=== PATIENT | male | born 1975 | race Caucasian/White ===

== ENCOUNTER → 2018-12-15 | Outpatient (CLI) | payer OTHER ==
[~2018-12-15] MED LIST: OMEP40CA36 PO
--- NOTE | 2018-12-15 11:13 | Diagnostic Imaging Report ---
Thoracic spine at 7:52 a.m. INDICATION: Back pain TECHNIQUE: AP, lateral and swimmer's views are obtained. COMPARISON: There are no prior studies available for comparison. FINDINGS: The vertebral body heights and alignment are within normal limits. The intervertebral spaces are well-maintained. There is no fracture or acute bony abnormality evident. There is no sign of a paraspinal mass. IMPRESSION: There is no evidence for an acute bony abnormality. Dictated by: Dictated on workstation # [id number]
--- NOTE | 2018-12-15 12:03 | Diagnostic Imaging Report ---
EXAMINATION: Lumbar spine at 0753 hours. INDICATION: Back pain. TECHNIQUE: AP, lateral, and spot lateral views were obtained. COMPARISON: There are no prior studies available for comparison. FINDINGS: The AP view reveals that there are six lumbar type vertebra. This is a developmental variant. The vertebral body heights and alignment are within normal limits and the intervertebral spaces are well maintained. There is no fracture or acute bony abnormality noted. The spot lateral view does show slight offset of the lower sacrum. This may be a sequela of prior trauma. There is no sign of a paraspinal mass. The sacroiliac joints are symmetrical and within normal limits. IMPRESSION: 1. There is no evidence for an acute bone abnormality. 2. If there is clinical concern regarding spinal stenosis or nerve root encroachment, then MRI would be recommended for further evaluation. Dictated by: Dictated on workstation # [id number]
--- NOTE | 2018-12-16 12:17 | HISTORY AND PHYSICAL ---
DATE OF SERVICE: COLONOSCOPY H AND P HISTORY OF PRESENT ILLNESS: The patient is a 43-year-old white male referred by Dr. Hebert for his first screening colonoscopy. He is deemed to be of higher than average risk as his father was diagnosed with colon cancer at the age of 49. He has had no previous colonoscopic screening. He is not aware of any history of bright red blood per rectum or melena. He denies any problems with diarrhea or constipation. He reports his weight has been stable and there have been no bowel habit changes or abdominal pain. He is not aware of any other family history for colon cancer. PAST MEDICAL HISTORY: Significant for reportedly mild reflux symptoms, he takes omeprazole for. He has had no dysphagia. There is no known family history for Capps's esophagus or any other GI tract malignancies other than his father's colon cancer. He reports that symptoms are well controlled on omeprazole. PAST SURGICAL HISTORY: As a child, he had a tonsillectomy and adenoidectomy. He reports no other surgeries. SOCIAL HISTORY: He works in [employer] for an 8 to 10-year. He reports that he smoked a pack of cigarettes per week, but quit about 10 years ago. Reports occasional social alcohol intake. FAMILY HISTORY: As noted in the HPI. REVIEW OF SYSTEMS: CONSTITUTIONAL: He denies change in weight, night sweats, chills or fever. CARDIOVASCULAR: He denies chest pain, palpitations, syncope or presyncope. PULMONARY: He denies any problems of wheezing, dyspnea on exertion or at rest. GASTROINTESTINAL: As noted in the HPI. PHYSICAL EXAMINATION: GENERAL: Reveals normal weight white male who appears to be in no acute distress. VITAL SIGNS: Weight is 175 pounds, blood pressure 120/78. HEENT: Unremarkable. He is a Mallampati class 2 oropharyngeal configuration. Oral cavity reveals no evidence for erythema or exudate. CHEST: Clear to auscultation. CARDIOVASCULAR: Reveals a regular rate and rhythm without murmur, S3 or S4. ABDOMEN: Soft, supple without mass, organomegaly or tenderness. EXTREMITIES: Reveal no cyanosis, clubbing or edema. ASSESSMENT AND PLAN: The patient is set up for screening colonoscopy at higher than average risk considering his father was diagnosed with colon cancer at the age of 49. Prep instructions with the Pérez-Prep kit were given and questions were answered. He was scheduled for colonoscopy on 12/25/2018. Discussed the need to avoid aspirin and nonsteroidal therapy in the interim. I thank you for the referral of this pleasant gentleman. Job ID: [id number] DocumentID: [id number] Dictated Date: 12/16/2018 11:29:20 Air Boatswain Date: 12/16/2018 12:16:37 Dictated By: EDIN DU MD
== END ==
LOC: RAD 07:28
PROVIDERS: ATTEND Internal Medicine
DX: M54.5 Low back pain (principal); M54.6 Pain in thoracic spine
CPT/HCPCS: 72072; 72100

== ENCOUNTER 2018-12-17 05:40 | Outpatient (CLI) | payer OTHER ==
[~2018-12-17] VITALS: Ht 185.5 cm; Wt 79.5 kg
[2018-12-17] MEDS ORDERED: OMEP40CA36 PO (15:01)
== END 2018-12-17 15:02 | disposition home or self-care (01) ==
LOC: PREOP 05:40
PROVIDERS: ATTEND Internal Medicine
DX: Z01.818 Encounter for other preprocedural examination (principal)

== ENCOUNTER 2018-12-25 08:31 | Day surgery (SDC) | payer OTHER ==
[2018-12-25] VITALS (11 sets, daily range): BP systolic 110–144; BP diastolic 60–83
[~2018-12-25] VITALS: Ht 185.5 cm; Wt 79.5 kg
[2018-12-25] MEDS ORDERED: fentaNYL INJECTION 100 MCG/2 ML AMP IVP ONE (08:45)
[2018-12-25] MEDS ORDERED: D5 LR IV SOLUTION 1,000 ML IV PRN (08:45)
[2018-12-25] MEDS ORDERED: LIDOCAINE JELLY 2% 6 ML SYRINGE MM PRN (08:45)
[2018-12-25] MEDS ORDERED: MIDAZOLAM 5 MG/5 ML (VERSED) VIAL IV PRN (08:45)
[2018-12-25] MEDS ORDERED: LIDOCAINE JELLY 2% 6 ML SYRINGE ONE (09:42)
[2018-12-25] MEDS ORDERED: fentaNYL INJECTION 100 MCG/2 ML AMP ONE (09:42)
[2018-12-25] MEDS ORDERED: MIDAZOLAM 5 MG/5 ML (VERSED) VIAL ONE (09:42)
--- NOTE | 2018-12-25 10:32 | Pre-Op Note & Conscious Sedat ---
Pre-Operative Progress Note H&P Reviewed The H&P was reviewed, patient examined and no changes noted. Date H&P Reviewed: Dec 25, 2018 Time H&P Reviewed: 09:30 Conscious Sedation Pre-Proced ASA Score 1 For ASA 3 and 4: Consider anesthesia and medical clearance. Also, for patients with a history of failed moderate sedation consider anesthesia. Airway Lungs Heart ASA score ASA 1: a normal healthy patient ASA 2: a patient with a mild systemic disease (mid diabetes, controlled hypertension, obesity ASA 3: a patient with a severe systemic disease that limits activity (angina, COPD, prior Myocardial infarction) ASA 4: a patient with an incapacitating disease that is a constant threat to life (CHF, renal failure) ASA 5: a moribund patient not expected to survive 24 hrs. (ruptured aneurysm) ASA 6: a declared brain- patient whose organs are being harvested. For emergent operations, add the letter E after the classification Mallampati Classification Grade 2 Sedation Plan Analgesia, Amnesia, Plan communicated to team members, Discussed options with patient/fam, Discussed risks with patient/fam The patient is an appropriate candidate to undergo the planned procedure, sedation, and anesthesia. The patient immediately re-assessed prior to indication. EDIN DU MD Dec 25, 2018 10:32
--- NOTE | 2018-12-26 01:08 | OPERATIVE REPORT ---
DATE OF SERVICE: INDICATION FOR THE PROCEDURE: Screening colonoscopy. He is deemed to be of higher than average risk as his father was diagnosed with colon cancer in his late 40s. This was his first colonoscopy. DESCRIPTION OF PROCEDURE: The patient was placed in the left lateral decubitus position. Prior to undergoing colonoscopy, digital rectal evaluation was performed. Anal sphincter tone was normal and the perianal reflexes intact. Prostate is mildly enlarged, anodular and nontender to digital inspection. No other abnormalities were noted to digital inspection of the anal canal or distal rectal vault. The colonoscope was then inserted into the rectum and under direct visualization advanced to the cecum. The cecum was identified by identification of the ileocecal valve and cecal strap. Photographic documentation was obtained. Careful inspection was made as colonoscope was withdrawn. Quality of prep was good and the patient tolerated the procedure well. FINDINGS: There was no evidence for internal or external hemorrhoids. Present at the rectosigmoid junction was a diminutive 3 mm sessile polyp. It was photographed and biopsied and ablated with no subsequent blood loss. Several small sigmoid diverticulum were present without evidence for diverticulitis. No other sigmoid colonic abnormalities were appreciated. The descending colon, splenic flexure, transverse colon, and ascending colon were unremarkable. Another diminutive 2 mm polyp was noted in the cecum. It was photographed, then biopsied and ablated again with no blood loss. ASSESSMENT: 1. Two small polyps were removed today, one from the rectosigmoid junction and the other one from the cecum via hot forceps. As long as there is no surprise on histopathology report considering family history, we will advocate repeat colonoscopy in 3 years. 2. Digital rectal evaluation is compatible with mild benign prostate hypertrophy. 3. Mild diverticular disease confined to the sigmoid colon was present without evidence for diverticulitis. Job ID: [id number] DocumentID: [id number] Dictated Date: 12/25/2018 16:54:21 Spiral Runner Date: 12/26/2018 01:07:55 Dictated By: EDIN DU MD
--- NOTE | 2018-12-29 13:53 | HISTORY AND PHYSICAL ---
DATE OF SERVICE: 12/25/18 COLONOSCOPY H AND P HISTORY OF PRESENT ILLNESS: The patient is a 43-year-old white male referred by Dr. Hebert for his first screening colonoscopy. He is deemed to be of higher than average risk as his father was diagnosed with colon cancer at the age of 49. He has had no previous colonoscopic screening. He is not aware of any history of bright red blood per rectum or melena. He denies any problems with diarrhea or constipation. He reports his weight has been stable and there have been no bowel habit changes or abdominal pain. He is not aware of any other family history for colon cancer. PAST MEDICAL HISTORY: Significant for reportedly mild reflux symptoms, he takes omeprazole for. He has had no dysphagia. There is no known family history for Capps's esophagus or any other GI tract malignancies other than his father's colon cancer. He reports that symptoms are well controlled on omeprazole. PAST SURGICAL HISTORY: As a child, he had a tonsillectomy and adenoidectomy. He reports no other surgeries. SOCIAL HISTORY: He works in [email or web address] for an 8 to 10-year. He reports that he smoked a pack of cigarettes per week, but quit about 10 years ago. Reports occasional social alcohol intake. FAMILY HISTORY: As noted in the HPI. REVIEW OF SYSTEMS: CONSTITUTIONAL: He denies change in weight, night sweats, chills or fever. CARDIOVASCULAR: He denies chest pain, palpitations, syncope or presyncope. PULMONARY: He denies any problems of wheezing, dyspnea on exertion or at rest. GASTROINTESTINAL: As noted in the HPI. PHYSICAL EXAMINATION: GENERAL: Reveals normal weight white male who appears to be in no acute distress. VITAL SIGNS: Weight is 175 pounds, blood pressure 120/78. HEENT: Unremarkable. He is a Mallampati class 2 oropharyngeal configuration. Oral cavity reveals no evidence for erythema or exudate. CHEST: Clear to auscultation. CARDIOVASCULAR: Reveals a regular rate and rhythm without murmur, S3 or S4. ABDOMEN: Soft, supple without mass, organomegaly or tenderness. EXTREMITIES: Reveal no cyanosis, clubbing or edema. ASSESSMENT AND PLAN: The patient is set up for screening colonoscopy at higher than average risk considering his father was diagnosed with colon cancer at the age of 49. Prep instructions with the Pérez-Prep kit were given and questions were answered. He was scheduled for colonoscopy on 12/25/2018. Discussed the need to avoid aspirin and nonsteroidal therapy in the interim. I thank you for the referral of this pleasant gentleman. Job ID: [id number] DocumentID: [id number] Dictated Date: 12/16/2018 11:29:20 Freelance Programmer/App Developer Date: 12/16/2018 12:16:37 Dictated By: EDIN DU MD <Dictated by EDIN DU MD> <Electronically signed by EDIN DU MD> 12/18/18 1003 MTDD
== END 2018-12-25 11:20 | disposition home or self-care (01) ==
LOC: ENDO 08:31
PROVIDERS: ATTEND Internal Medicine
DX: Z12.11 Encounter for screening for malignant neoplasm of colon (principal); D12.0 Benign neoplasm of cecum; K62.1 Rectal polyp; K57.30 Diverticulosis of large intestine without perforation or abscess without bleeding; Z87.891 Personal history of nicotine dependence

== ENCOUNTER → 2018-12-29 | Outpatient (CLI) | payer OTHER ==
--- NOTE | 2018-12-29 09:21 | Diagnostic Imaging Report ---
PROCEDURE: US Thyroid. TECHNIQUE: Multiple real-time grayscale images were obtained of the thyroid in various projections. INDICATION: Abnormal TSH COMPARISON: None FINDINGS: The right thyroid lobe is mildly prominent measuring 6.3 cm in length, 3.1 cm AP and 2.4 cm transverse. The echotexture is heterogeneous. Vascularity appears to be within normal limits. No discrete nodule is identified. The isthmus is thick measuring 12 mm. No nodule is seen. The left thyroid lobe measures 6.0 x 2.8 x 1.8 cm and is also heterogeneous with no discrete nodule seen. Vascularity appears normal and symmetric with the right side. IMPRESSION: 1. Enlarged, heterogeneous thyroid, with normal vascularity and no discrete nodule seen. This is nonspecific, but could be seen with a Yani thyroiditis. Dictated by: Dictated on workstation # [id number]
== END ==
LOC: RAD 07:24
PROVIDERS: ATTEND Internal Medicine
DX: E04.9 Nontoxic goiter, unspecified (principal)
CPT/HCPCS: 76536

== ENCOUNTER 2020-07-28 16:17 | Emergency (ER) | payer OTHER ==
[~2020-07-28] VITALS: Ht 182 cm; Wt 160.0 kg
[~2020-07-28 16:17] MED LIST changes: +OMEP40CA27 PO; -OMEP40CA36 PO
[2020-07-28] MEDS ORDERED: KETOROLAC 30 MG/ML VIAL IVP STA (17:04)
--- NOTE | 2020-07-28 17:05 | ED Chest Pain ---
General Chief Complaint: Chest Pain Stated Complaint: STERNUM PAIN Nursing Triage Note: Patient ambulatory to ER with c/o pain to the xiphoid process/sternal area. Patient states this pain started this morning but went away. It came back this evening and is worse. Site is tender to palpation. Patient states he had nausea and vomited multiple times this last week but that is better now. Nursing Sepsis Screen: No Definite Risk Source: patient Exam Limitations: no limitations (TASHA ROBLERO MD) History of Present Illness Date Seen by Provider: July 28, 2020 Time Seen by Provider: 16:57 Initial Comments Here with report of low chest pain anteriorly that has occurred twice today. The first time was earlier this morning and lasted for about 20 minutes and then resolved. Second 1 lasted about 20 to [address] here and still is there a little bit. States that it is tender to touch and denies breathing problems, vomiting, sweating or weakness associated with that. He did have episode of fairly significant vomiting on Friday of this week 5 days ago. That resolved. He is more normal with respect back to his abdominal discomfort from earlier this week although states that he has had less bowel movements than normal. He still is having bowel movements though. Drinks approximately a 12 pack of beer weekly but sometimes it will go up to a case of beer. Timing/Duration: 1/2 hour, intermittent Severity/Quality: moderate, burning Location: central (Sternum lower end and xiphoid) Radiation: no radiation Activities at Onset: none Prior CP/Workup: no prior chest pain, no prior cardiac workup Modifying Factors: improves with rest ASA po BRAKE REPAIRER BUS: No NTG SL BRAKE REPAIRER BUS: No Associated Symptoms: abdominal pain; No back pain, No diaphoresis, No nausea/vomiting, No shortness of breath, No weakness (TASHA ROBLERO MD) Allergies and Home Medications Allergies Coded Allergies: No Known Drug Allergies (Unverified , 04/02/15) Home Medications Omeprazole 40 Mg Capsule.dr, 40 MG PO DAILY, (Reported) Patient Home Medication List Home Medication List Reviewed: Yes (TASHA ROBLERO MD) Review of Systems Review of Systems Constitutional: see HPI; No chills, No fever EENTM: No Symptoms Reported Respiratory: No Symptoms Reported Cardiovascular: Chest Pain; Denies Edema Gastrointestinal: See HPI Genitourinary: No Symptoms Reported Musculoskeletal: No back pain; muscle pain Skin: no symptoms reported (TASHA ROBLERO MD) All Other Systems Reviewed Negative Unless Noted: Yes (TASHA ROBLERO MD) Past Knohvot-Qdiqqf-Pylxra Hx Past Med/Social Hx: Reviewed Nursing Past Med/Soc Hx (TASHA ROBLERO MD) Patient Social History Alcohol Use: Occasionally Uses Alcohol Beverage of Choice: Beer Smoking Status: Former Smoker 2nd Hand Smoke Exposure: No Recent Infectious Disease Expo: No Recent Hopitalizations: No (TASHA ROBLERO MD) Seasonal Allergies Seasonal Allergies: No (TASHA ROBLERO MD) Past Medical History Surgeries: No Adenoidectomy, Tonsillectomy Respiratory: No Cardiac: No Neurological: No Reproductive Disorders: No Genitourinary: No Gastrointestinal: Yes Gastroesophageal Reflux Musculoskeletal: No Endocrine: No HEENT: No Cancer: No Psychosocial: No Integumentary: No Blood Disorders: No (TASHA ROBLERO MD) Family Medical History Reviewed Nursing Family Hx (TASHA ROBLERO MD) Colon cancer Heart Disease (TASHA ROBLERO MD) Physical Exam Vital Signs Vital Signs - First Documented 07/28/20 16:38 Temp 36.7 Pulse 92 Resp 18 B/P (MAP) 129/75 (93) Pulse Ox 96 O2 Delivery Room Air (CHIQUIS SHEETS) Vital Signs Capillary Refill : Less Than 3 Seconds (TASHA ROBLERO MD) Height, Weight, BMI Height: '" Weight: lbs. oz. kg; 48.00 BMI Method: General Appearance: No Apparent Distress, WD/WN HEENT: PERRL/EOMI, Pharynx Normal Neck: Non Tender, Supple Respiratory: Lungs Clear, Normal Breath Sounds Cardiovascular: Regular Rate, Rhythm, No Murmur Gastrointestinal: Soft, Tenderness (Reproducible tenderness to the area of the xiphoid and upper abdomen near this area of the sternum.) Extremity: Normal Range of Motion, Non Tender Neurologic/Psychiatric: Alert, Oriented x3 Skin: Normal Color, Warm/Dry (TASHA ROBLERO MD) Progress/Results/Core Measures Results/Orders Lab Results Laboratory Tests Test 07/28/20 17:13 07/28/20 18:46 Range/Units White Blood Count 5.2 4.3-11.0 10^3/uL Red Blood Count 4.53 4.30-5.52 10^6/uL Hemoglobin 12.7 L 13.3-17.7 g/dL Hematocrit 38 L 40-54 % Mean Corpuscular Volume 83 80-99 fL Mean Corpuscular Hemoglobin 28 25-34 pg Mean Corpuscular Hemoglobin Concent 34 32-36 g/dL Red Cell Distribution Width 12.1 10.0-14.5 % Platelet Count 233 130-400 10^3/uL Mean Platelet Volume 9.5 9.0-12.2 fL Immature Granulocyte % (Auto) 0 % Neutrophils (%) (Auto) 46 42-75 % Lymphocytes (%) (Auto) 41 12-44 % Monocytes (%) (Auto) 11 0-12 % Eosinophils (%) (Auto) 2 0-10 % Basophils (%) (Auto) 0 0-10 % Neutrophils # (Auto) 2.4 1.8-7.8 10^3/uL Lymphocytes # (Auto) 2.1 1.0-4.0 10^3/uL Monocytes # (Auto) 0.6 0.0-1.0 10^3/uL Eosinophils # (Auto) 0.1 0.0-0.3 10^3/uL Basophils # (Auto) 0.0 0.0-0.1 10^3/uL Immature Granulocyte # (Auto) 0.0 0.0-0.1 10^3/uL Prothrombin Time 13.2 12.2-14.7 SEC INR Comment 1.0 0.8-1.4 Activated Partial Thromboplast Time 29 24-35 SEC Sodium Level 140 135-145 MMOL/L Potassium Level 3.7 3.6-5.0 MMOL/L Chloride Level 103 98-107 MMOL/L Carbon Dioxide Level 26 21-32 MMOL/L Anion Gap 11 5-14 MMOL/L Blood Urea Nitrogen 14 7-18 MG/DL Creatinine 0.58 L 0.60-1.30 MG/DL Estimat Glomerular Filtration Rate > 60 BUN/Creatinine Ratio 24 Glucose Level 97 70-105 MG/DL Calcium Level 9.3 8.5-10.1 MG/DL Corrected Calcium 9.5 8.5-10.1 MG/DL Magnesium Level 1.8 1.6-2.4 MG/DL Total Bilirubin 0.7 0.1-1.0 MG/DL Aspartate Amino Transf (AST/SGOT) 32 5-34 U/L Alanine Aminotransferase (ALT/SGPT) 51 0-55 U/L Alkaline Phosphatase 154 H 40-136 U/L Myoglobin 30.3 10.0-92.0 NG/ML Troponin I < 0.028 < 0.028 <0.028 NG/ML Total Protein 6.5 6.4-8.2 GM/DL Albumin 3.8 3.2-4.5 GM/DL Lipase 32 8-78 U/L (CHIQUIS SHEETS) My Orders Orders - CHIQUIS SHEETS Troponin I (07/28/20 18:45) (CHIQUIS SHEETS) Medications Given in ED Current Medications Medications Dose Ordered Sig/Kalani Route Start Time Stop Time Status Last Admin Dose Admin Aspirin 324 mg ONCE ONCE PO 07/28/20 17:15 07/28/20 17:16 DC 07/28/20 17:10 324 MG (CHIQUIS SHEETS) Vital Signs/I&O 07/28/20 16:38 Temp 36.7 Pulse 92 Resp 18 B/P (MAP) 129/75 (93) Pulse Ox 96 O2 Delivery Room Air (CHIQUIS SHEETS) Blood Pressure Mean: 93 Progress Progress Note : Progress Note Seen and evaluated. Given presentation, we will go ahead and initiate chest pain protocol and aspirin 324 mg p.o. given as well. Toradol 30 mg for muscular type pain given IV. Monitor patient. (TASHA ROBLERO MD) Progress Note #1: Time: 18:07 Progress Note #2: Time: 18:07 Progress Note Assumed care of the patient at shift change and I agree with the above documented history physical exam. Because the patient's continued episodes of chest pain which appear to be musculoskeletal or related to his vomiting episodes we will do a delta troponin at 1845. (CHIQUIS SHEETS) Initial ECG Impression Date: July 28, 2020 Initial ECG Impression Time: 17:07 Initial ECG Rate: 88 Comment Sinus rhythm with left atrial abnormality. Normal axis. No evidence of ST elevation [place]. No previous available for comparison. Interpreted by me. (TASHA ROBLERO MD) Initial ECG Rhythm: Normal Sinus Initial ECG Intervals: QT (470) Initial ECG Impression: Normal Comment Normal sinus rhythm without clinically relevant ST elevation or depression. (CHIQUIS SHEETS) Diagnostic Imaging Diagonstic Imaging: Xray Plain Films/CT/US/NM/MRI: chest Comments [facility]. [place], [place] NAME: KARLI ROGERS [facility] REC#: [id number] PT STATUS: REG ER : 1975 PHYSICIAN: TASHA ROBLERO MD ADMIT DATE: 07/28/20/ER Signed Date of Exam:07/28/20 CHEST 1 VIEW, AP/PA ONLY CHEST 1 VIEW, AP/PA ONLY Indication: Chest pain. Comparison: None available. Findings: No focal airspace disease in the visualized lungs. Please note that the posterior lower lobes are poorly evaluated by portable radiography. No pleural effusion or pneumothorax. Normal cardiomediastinal silhouette. Impression: 1. No acute cardiopulmonary process by portable radiography. Dictated by: Dictated on workstation # [id number] Dict: 07/28/201746 Trans: 07/28/201746 [facility] [id number] Interpreted by: ORTIZ TERRAZAS MD Electronically signed by: ORTIZ TERRAZAS MD 07/28/201746 Reviewed: Reviewed by Me (CHIQUIS SHEETS) Departure Impression Primary Impression: Chest pain Additional Impression: Gastroesophageal reflux disease Disposition: 01 HOME, SELF-CARE Condition: Stable Departure-Patient Inst. Decision time for Depature: 19:48 (CHIQUIS SHEETS) Referrals: MARIA ELENA MERCADO MD, BASHAR J MD TAYLOR, JOHN D MD (PCP/Family) Primary Care Physician Patient Instructions: Chest Pain, Adult ED Add. Discharge Instructions: I would like to invite you to call Dr. May's clinic on Friday and request follow-up to complete a work-up of your chest pain and make sure it is not related to your heart. If he releases you then I would encourage you to follow-up with Dr. Mercado, general surgery to explore your chest pain if it is related to some kind of gastrointestinal disease such as esophagitis, GERD, peptic ulcer disease etc. He may discuss with you the possibility of an EGD or putting a scoped camera in your stomach. I would also invite you to return to the ER promptly if you are having severe, intractable chest pain that does not respond to Tums, Mylanta, Maalox etc. Omeprazole 20 mg twice a day for the next month. Carafate half an hour before meals and at bedtime for the next 2 weeks to help protect her stomach lining. All discharge instructions reviewed with patient and/or family. Voiced understanding. Scripts Sucralfate (Carafate) 1 Gm Tablet 1 GM PO QIDACHS for 14 Days, #56 TAB 0 Refills Prov: CHIQUIS SHEETS 07/28/20 Copy Copies To 1: MARIA ELENA MERCADO MD; CARLEY MAY MD, TIMOTHY D MD July 28, 2020 17:05 CHIQUIS SHEETS July 28, 2020 18:09
[2020-07-28] MEDS ORDERED: ASPIRIN 81 MG CHEW (CHILDREN'S ASA) PO ONE (17:15)
[2020-07-28 17:22] LABS: BASOPHILS % (AUTO) 0 % (0-10); EOSINOPHILS # (AUTO) 0.1 10^3/uL (0.0-0.3); EOSINOPHILS % (AUTO) 2 % (0-10); HEMATOCRIT 38 % (40-54); HEMOGLOBIN 12.7 g/dL (13.3-17.7); LYMPHOCYTES # (AUTO) 2.1 10^3/uL (1.0-4.0); LYMPHOCYTES % (AUTO) 41 % (12-44); MEAN CORPUSCULAR HEMOGLOBIN 28 pg (25-34); MEAN CORPUSCULAR HGB CONC 34 g/dL (32-36); MEAN CORPUSCULAR VOLUME 83 fL (80-99); MEAN PLATELET VOLUME 9.5 fL (9.0-12.2); MONOCYTES # (AUTO) 0.6 10^3/uL (0.0-1.0); MONOCYTES % (AUTO) 11 % (0-12); NEUTROPHILS # (AUTO) 2.4 10^3/uL (1.8-7.8); NEUTROPHILS % (AUTO) 46 % (42-75); PLATELET COUNT 233 10^3/uL (130-400); WHITE BLOOD COUNT 5.2 10^3/uL (4.3-11.0)
[2020-07-28 17:34] LABS: ALBUMIN 3.8 GM/DL (3.2-4.5); PROTHROMBIN TIME PATIENT 13.2 SEC (12.2-14.7)
[2020-07-28 17:35] LABS: CHLORIDE 103 MMOL/L (98-107); POTASSIUM 3.7 MMOL/L (3.6-5.0); SODIUM 140 MMOL/L (135-145)
[2020-07-28 17:36] LABS: CALCIUM 9.3 MG/DL (8.5-10.1)
[2020-07-28 17:37] LABS: GLUCOSE 97 MG/DL (70-105); TOTAL PROTEIN 6.5 GM/DL (6.4-8.2)
[2020-07-28 17:38] LABS: CARBON DIOXIDE 26 MMOL/L (21-32)
[2020-07-28 17:39] LABS: BILIRUBIN,TOTAL 0.7 MG/DL (0.1-1.0)
[2020-07-28 17:40] LABS: ALKALINE PHOSPHATASE 154 U/L (40-136)
[2020-07-28 17:41] LABS: CREATININE SERUM 0.58 MG/DL (0.60-1.30); GFR ESTIMATED > 60
[2020-07-28 17:42] LABS: BUN/CREATININE RATIO 24
[2020-07-28 17:43] LABS: ALANINE AMINOTRANSFERASE 51 U/L (0-55)
[2020-07-28 17:44] LABS: MAGNESIUM 1.8 MG/DL (1.6-2.4)
[2020-07-28 17:45] LABS: LIPASE 32 U/L (8-78)
--- NOTE | 2020-07-28 17:49 | Diagnostic Imaging Report ---
CHEST 1 VIEW, AP/PA ONLY Indication: Chest pain. Comparison: None available. Findings: No focal airspace disease in the visualized lungs. Please note that the posterior lower lobes are poorly evaluated by portable radiography. No pleural effusion or pneumothorax. Normal cardiomediastinal silhouette. Impression: 1. No acute cardiopulmonary process by portable radiography. Dictated by: Dictated on workstation # [id number]
[2020-07-28] MEDS ORDERED: SUCR1TAB36 PO (19:51)
[2020-07-28 19:58] VITALS: BP 102/72
== END 2020-07-28 19:59 | disposition home or self-care (01) ==
LOC: EDUNIT# 16:17 → ER 16:18
DX: K21.9 Gastro-esophageal reflux disease without esophagitis (principal); Z87.891 Personal history of nicotine dependence; Z79.899 Other long term (current) drug therapy
CPT/HCPCS: 36415; 71045; 80053; 83690; 83735; 83874; 84484; 85025; 85610; 85730; 93005; 93041

== ENCOUNTER → 2020-10-11 | Outpatient (CLI) | payer OTHER ==
[~2020-10-11] MED LIST changes: -OMEP40CA27 PO; +OMEP40CA6 PO; +SUCR1TAB36 PO
[2020-10-11 14:13] VITALS: BP 141/54
--- NOTE | 2020-10-13 12:01 | Cardiology Stress Test Report ---
Stress Test Report Date of Procedure/Referring: Date of Procedure: Oct 13, 2020 PCP Carley May MD Admitting Physician Reynaldo Hebert MD Indications: CP Baseline Heart Rate: 95 Baseline Blood Pressure: Blood Pressure Systolic: 141 Blood Pressure Diastolic: 54 Baseline EKG: Baseline EKG: NSR Summary/Conclusion: Summary: In summary, the patient started exercising with a baseline heart rate, blood pressure and EKG mentioned above Patient was able to exercise for a total of 10 minutes on Mau protocol, METs 11.7 Maximum heart rate 163 Maximum blood pressure 225/69 Stress EKG, Minimal nondiagnostic changes Recovery EKG , Return to baseline Conclusion: 1. Good exercise tolerance for a total of 10 minutes on Mau protocol, 11.7 METs, achieving 93 percent of maximum expected heart rate 2. Minimal nondiagnostic EKG changes with exercise returned to baseline during recovery 3. No arrhythmia was noted 4. Severe hypertensive response to exercise with peak blood pressure 225/69 return to baseline during recovery CARLEY MAY MD Oct 13, 2020 12:01
== END ==
LOC: CARD 14:00
PROVIDERS: ATTEND Internal Medicine Cardiovascular Disease
DX: R07.9 Chest pain, unspecified (principal); R00.2 Palpitations
CPT/HCPCS: 93017

== ENCOUNTER → 2021-04-23 | Outpatient (CLI) | payer OTHER ==
--- NOTE | 2021-04-23 18:20 | Diagnostic Imaging Report ---
PROCEDURE: US Thyroid. TECHNIQUE: Multiple real-time grayscale images were obtained of the thyroid in various projections. INDICATION: Enlarged thyroid. COMPARISON: 12/29/2018. FINDINGS: The right thyroid is large measuring 6.8 x 2.6 x 3.5 cm. It has a heterogeneous echotexture. Vascularity appears normal. No discrete nodules are seen. The isthmus is thickened measuring 1.7 cm and appears heterogeneous. The left thyroid lobe is large measuring 7.3 x 2.1 x 2.8 cm. Echotexture is heterogeneous, and vascularity is normal. No discrete nodules are seen. IMPRESSION: 1. Enlarged heterogeneous thyroid with no discrete nodule seen. Dictated by: Dictated on workstation # [id number]
== END ==
LOC: RAD 14:15
PROVIDERS: ATTEND Internal Medicine
DX: E04.9 Nontoxic goiter, unspecified (principal)
CPT/HCPCS: 76536

== ENCOUNTER → 2021-10-30 | Outpatient (CLI) | payer OTHER ==
--- NOTE | 2021-10-31 17:28 | Diagnostic Imaging Report ---
I123 THYROID UPTAKE SCAN INDICATION: Abnormal thyroid levels COMPARISON: Thyroid ultrasound from 04/23/2021 TECHNIQUE: Scintigraphic imaging of the thyroid was performed. FINDINGS: There is avid homogeneous strictures uptake by the thyroid. No photopenic defects or discrete hyperactive thyroid nodules. The calculated 4 hour thyroid uptake is 136% and 24 hours is 140%. These values are likely not accurate given greater than 100%. However, they do confirm the imaging features of avid radiotracer uptake by the thyroid indicative of hyperthyroidism. IMPRESSION: 1. Hyperthyroidism. 2. No hyperfunctioning thyroid adenoma. Dictated by: Dictated on workstation # [id number]
== END ==
LOC: CARD 11:00
PROVIDERS: ATTEND Internal Medicine
DX: E05.90 Thyrotoxicosis, unspecified without thyrotoxic crisis or storm (principal)
CPT/HCPCS: 78014; A9516

== ENCOUNTER 2021-11-29 11:07 | Outpatient (CLI) | payer OTHER ==
[~2021-11-29] VITALS: Ht 185.4 cm; Wt 68.6 kg
[2021-11-29] MEDS ORDERED: OMEP20TA33 PO (11:36)
[2021-11-29] MEDS ORDERED: METH-307 PO (11:36)
== END 2021-11-29 11:42 ==
LOC: PREOP 11:07
PROVIDERS: ATTEND Internal Medicine
DX: Z01.818 Encounter for other preprocedural examination (principal)

== ENCOUNTER → 2021-12-13 | Outpatient (CLI) | payer OTHER ==
[~2021-12-13] MED LIST changes: +METH-307 PO; +OMEP20TA33 PO
== END ==
LOC: CARD 09:30
PROVIDERS: ATTEND Internal Medicine Cardiovascular Disease
DX: I34.0 Nonrheumatic mitral (valve) insufficiency (principal); I10 Essential (primary) hypertension; I25.10 Atherosclerotic heart disease of native coronary artery without angina pectoris
CPT/HCPCS: 93306

== ENCOUNTER 2021-12-21 08:50 | Day surgery (SDC) | payer OTHER ==
--- NOTE | 2021-11-29 17:49 | HISTORY AND PHYSICAL ---
DATE OF SERVICE: COLONOSCOPY HISTORY AND PHYSICAL DATE OF ADMISSION: 12/07/2021. REFERRING PHYSICIAN: Reynaldo Hebert MD HISTORY OF PRESENT ILLNESS: The patient is a 46-year-old white male seen for surveillance colonoscopy due to past history of colon polyps as well as a family history for colon cancer. His father was diagnosed with colon cancer in his mid to late 40s. The patient had been doing well up until about 6 months ago for evaluation of weight loss and fatigue. He was found to have Graves' disease. He has been on methimazole and was still losing weight on 5 mg, recently increased to 10 mg daily. He reports he started to feel a bit better on increased dose. He denies chest pain, shortness of breath, heart racing or tremor. Reports good appetite, but he has not been able to gain any weight as of yet. His weight is 151.4 pounds in the office, was down 23.6 pounds from his last office weight three years ago on his last colonoscopy. He has had some loose stools with Graves' disease. He denies melena, bright red blood per rectum or abdominal pain. PAST MEDICAL HISTORY: Significant for some reflux symptoms that he is not currently taking any medications for. He is only on methimazole for thyroid at this time. PAST SURGICAL HISTORY: He had tonsillectomy and adenoidectomy as a child. Reporting no other surgeries. SOCIAL HISTORY: He works in the [employer]. He has only minimal past smoking history, quit 13 years ago with occasional small volume social alcohol intake. FAMILY HISTORY: As noted in the HPI. Father is the only known person with colon cancer that he is aware of. REVIEW OF SYSTEMS: CONSTITUTIONAL: Denies night sweats, chills, fever. There is positive weight loss as noted above. CARDIOVASCULAR: Denies chest pain, palpitation, heart racing, syncope or presyncope. PULMONARY: Denies cough, wheezing or shortness of breath. GASTROINTESTINAL: As noted in the HPI. PHYSICAL EXAMINATION: GENERAL: Reveals a thin white male in no acute distress. HEENT: Sclerae are nonicteric. There is some mild left sided proptosis, no evidence for pallor is noted. CHEST: Clear to auscultation. CARDIOVASCULAR: Reveals a regular rate and rhythm without murmur, S3 or S4. ABDOMEN: Soft, supple without mass, organomegaly or tenderness. EXTREMITIES: Reveal no cyanosis, clubbing or edema. VITAL SIGNS: Blood pressure was 146/84 and heart rate was 78 and regular. ASSESSMENT AND PLAN: 1. The patient is being set up for surveillance colonoscopy due to past history of colon polyps and family history for colon cancer as noted above. Prep instructions were given, and questions were answered. 2. Graves' disease. The patient is feeling better with increase in methimazole to 10 mg. Currently, appears to be relatively euthyroid with a heart rate of 78 and regular. No evidence for tremor. Discussed the importance of continuing methimazole and not skipping any doses including the day of his colonoscopy. I thank you for the referral of this pleasant gentleman. Job ID: [id number] DocumentID: [id number] Dictated Date: 11/29/2021 16:55:52 [place] Operator Date: 11/29/2021 17:48:59 Dictated By: EDIN DU MD MTDD
[~2021-12-21] VITALS: Ht 185 cm; Wt 68.6 kg
[2021-12-21 08:05] VITALS: BP 135/84
[2021-12-21] MEDS ORDERED: LACTATED RINGERS 1,000 ML IV STA (08:55)
--- NOTE | 2021-12-21 09:43 | Pre-Op Note & Conscious Sedat ---
Pre-Operative Progress Note Date H&P Reviewed: Dec 21, 2021 Time H&P Reviewed: 09:42 History & Physical: H&P Reviewed, Patient Examed, No changes noted Pre-Op Diagnosis: hx of colon polyps Conscious Sedation Pre-Proced ASA Score 2 For ASA 3 and 4: Consider anesthesia and medical clearance. Also, for patients with a history of failed moderate sedation consider anesthesia. Airway Lungs Heart ASA score ASA 1: a normal healthy patient ASA 2: a patient with a mild systemic disease (mid diabetes, controlled hypertension, obesity ASA 3: a patient with a severe systemic disease that limits activity (angina, COPD, prior Myocardial infarction) ASA 4: a patient with an incapacitating disease that is a constant threat to life (CHF, renal failure) ASA 5: a moribund patient not expected to survive 24 hrs. (ruptured aneurysm) ASA 6: a declared brain- patient whose organs are being harvested. For emergent operations, add the letter E after the classification Mallampati Classification Grade 1 Sedation Plan Analgesia, Amnesia, Plan communicated to team members, Discussed options with patient/fam, Discussed risks with patient/fam The patient is an appropriate candidate to undergo the planned procedure, sedation, and anesthesia. The patient immediately re-assessed prior to indication. EDIN DU MD Dec 21, 2021 09:43
[2021-12-21] MEDS ORDERED: MIDAZOLAM 2 MG/2 ML (VERSED) VIAL ONE (10:25)
[2021-12-21] MEDS ORDERED: PROPOFOL INJECTION 50 ML IV ONE (10:25)
[2021-12-21 10:45] VITALS: BP 108/66
[2021-12-21 10:50] VITALS: BP 117/73
--- NOTE | 2021-12-21 10:52 | Progress Note-Post Operative ---
Post-Procedure Note Physician (s)/Officer Lieutenant (s) Physician EDIN DU MD Pre-Procedure Diagnosis Pre-Procedure Diagnosis: hx of colon polyps Post-Procedure Note Findings/Procedure Note Colonoscopy was performed due to past history of colon polyps and family history of colon cancer. Patient was placed in the left lateral decubitus position. Prior to undergoing colonoscopy digital rectal evaluation was performed. Anal sphincter tone was normal and the perianal reflexes intact. No abnormalities noted on digital inspection anal canal or distal rectal vault. The prostate is normal in size and a nodular on digital inspection. The colonoscope was inserted into the rectum and under direct physician advanced cecum. The cecum was identified by indication of the illness valve cecal strap and the appendiceal orifice. Photographic documentation was obtained. Careful inspection was made as the colonoscope was withdrawn. Quality the prep was good. Findings: There are no evidence for internal/external hemorrhoids. The rectum sigmoid colon descending colon splenic flexure transverse colon and ascending colon hepatic flexure and cecum were unremarkable. Assessment: Normal colonoscopy to the cecum. Considering family history would advocate consideration for repeat screening colonoscopy in 5 years. Post-Procedure Diagnosis Post-operative diagnosis: normal colon EDIN DU MD Dec 21, 2021 10:51
[2021-12-21 10:55] VITALS: BP 125/76
[2021-12-21 11:00] VITALS: BP 140/79
[2021-12-21 11:31] VITALS: BP 140/79
--- NOTE | 2021-12-21 11:32 | Anesthesia-General Post-Op ---
MAC Patient Condition Mental Status/LOC: Same as Preop Cardiovascular: Satisfactory Nausea/Vomiting: Absent Respiratory: Satisfactory Pain: Controlled Complications: Absent Post Op Complications Complications None Follow Up Care/Instructions Patient Instructions None needed. Anesthesiology Discharge Order Discharge Order Patient is doing well, no complaints, stable vital signs, no apparent adverse anesthesia problems. No complications reported per nursing. GRACE NORIEGA CRNA Dec 21, 2021 11:32
== END 2021-12-21 11:27 | disposition home or self-care (01) ==
LOC: ENDO 08:50
PROVIDERS: ATTEND Internal Medicine
DX: Z12.11 Encounter for screening for malignant neoplasm of colon (principal); Z80.0 Family history of malignant neoplasm of digestive organs; Z86.010 Personal history of colon polyps; E05.00 Thyrotoxicosis with diffuse goiter without thyrotoxic crisis or storm; K21.9 Gastro-esophageal reflux disease without esophagitis; Z79.899 Other long term (current) drug therapy; Z87.891 Personal history of nicotine dependence

== ENCOUNTER → 2022-03-07 | Outpatient (CLI) | payer OTHER ==
[~2022-03-07] MED LIST changes: +HOLD METFORMIN - RECEIVED CONTRAST 20 ML VIAL IV SCH; +IOHEXOL 350 MG/ML 100 ML (OMNIPAQUE 350) VIAL IV ONE; +NS 100 ML (IVPB) BAG IV ONE
--- NOTE | 2022-03-07 10:48 | Diagnostic Imaging Report ---
PROCEDURE: CT neck soft tissue with contrast. TECHNIQUE: Multiple contiguous axial images were obtained through the neck after the administration of contrast. Auto Exposure Controls were utilized during the CT exam to meet ALARA standards for radiation dose reduction. INDICATION: Enlarged lymph nodes in the right side of the neck. History of hyperthyroidism with enlarged thyroid. COMPARISON: 10/31/2021. 04/23/2021. Findings: The posterior nasopharynx and oropharynx demonstrate appropriate symmetry. There is no displacement of the parapharyngeal fat planes. There is no abnormal process evident within the prevertebral or retropharyngeal space. There is no evidence of abnormal thickening of the epiglottis or aryepiglottic folds. The vocal folds appear symmetric. There is prominence of the thyroid. No discrete focal nodule is seen. The parotid and submandibular glands are unremarkable. Numerous mildly prominent lymph nodes are seen in the neck bilaterally. The largest on the left measures 0.9 cm in short axis and the largest on the right measures 0.9 cm in short axis. The vascular structures the neck demonstrate no evidence of high-grade stenosis on this nondedicated exam. The visualized lung apices are clear. The visualized intracranial contents demonstrate no evidence of pathologic intracranial enhancement or intracranial mass effect. Visualized orbital contents are unremarkable. A small amount of retained secretions are seen in the maxillary sinuses. The mastoids and middle ears are clear. No acute osseous abnormality in the cervical spine. Impression: 1. Appropriate symmetry of the aerodigestive tract. No mass or fluid collection in the aerodigestive tract. 2. Numerous mildly prominent lymph nodes in the neck bilaterally. No obvious pathologic lymph nodes are seen. Findings may be reactive and correlation with patient history is recommended. Ultrasound could be performed to further evaluate. 3. Prominent thyroid, similar to prior exams. Recommend correlation with TSH levels and if indicated thyroid ultrasound. Dictated by: Dictated on workstation # [id number]
== END ==
LOC: RAD 08:45
PROVIDERS: ATTEND Internal Medicine
DX: R59.0 Localized enlarged lymph nodes (principal); E04.9 Nontoxic goiter, unspecified
CPT/HCPCS: 70491